=== PATIENT | female | born 1935 | race Caucasian/White ===

== ENCOUNTER 2019-05-11 06:10 | Day surgery (SDC) | payer MEDICARE ==
[~2019-05-11 06:10] MED LIST: Acetaminophen TAB* 325 MG ONE; Acetaminophen TAB* 325 MG PO ONE; Buffered Lidocaine 1% SYRIN* 1 ML/SYRINGE INTRADERM ONE; Lactated Ringers 1000 ML Bag* 1,000 ML IV SCH; ceFAZolin 2 GM in NS PREMIX(*) 2 GM/100 ML BAG IVPB ONE
[2019-05-11] MEDS ORDERED: Lidocaine 1% INJ* 10 MG/ML 30 ML SDV ONE (07:43)
[2019-05-11] MEDS ORDERED: Ondansetron INJ* 2 MG/ML VIAL ONE (07:58)
[2019-05-11] MEDS ORDERED: fentaNYL* 50 MCG/ML 2 ML VIAL (100 MCG VIAL) ONE ×2 (07:58→09:41)
[2019-05-11] MEDS ORDERED: Midazolam* 1 MG/ML 2 ML VIAL (2 MG) ONE (07:58)
[2019-05-11] MEDS ORDERED: Dexamethasone IV* 4 MG/ML 1 ML (4 MG) ONE (07:58)
[2019-05-11] MEDS ORDERED: Lidocaine 2% PF * 5 ML VIAL ONE (07:58)
[2019-05-11] MEDS ORDERED: Propofol* 10 MG/ML 20 ML BTL ONE (07:58)
[2019-05-11] MEDS ORDERED: Famotidine IV* 10 MG/ML 2 ML (20 mg) ONE (08:01)
[2019-05-11] MEDS ORDERED: Bupivacaine 0.25% SDV* 30 ML ONE (08:15)
[2019-05-11] MEDS ORDERED: Ondansetron INJ* 2 MG/ML VIAL IV PRN (08:27)
[2019-05-11] MEDS ORDERED: HYDROcodone/ACETAMIN 5-325 MG* 1 TAB PO PRN (08:27)
[2019-05-11] MEDS ORDERED: Naloxone* 0.4 MG/ML 1 ML VIAL IV PRN (08:27)
[2019-05-11] MEDS ORDERED: DiMENhydriNATE IV* 50 MG/ML VIAL IV PUSH PRN (08:27)
[2019-05-11] MEDS ORDERED: Labetalol IV* 5 MG/ML 20 ML VIAL ONE (08:41)
[2019-05-11] MEDS: fentaNYL* 50 MCG/ML 2 ML VIAL (100 MCG VIAL) IV PRN ×3 (09:42→10:01)
[2019-05-11] MEDS ORDERED: traMADol TAB* 50 MG PO ONE (10:16)
[2019-05-11] MEDS ORDERED: traMADol TAB* 50 MG ONE (10:18)
[2019-05-11 11:24] VITALS: BP 144/68
--- NOTE | 2019-05-11 22:44 | OP ---
DATE OF OPERATION: 05/11/19 - [facility] DATE OF : 31 SURGEON: Reji Cabrera MD DIRECTOR HEALTH: JN Kwon. An assistant offset press operator was needed for the procedure to aid in positioning of the arm and retraction. ANESTHESIOLOGIST: Dr. Stephenson. ANESTHESIA: General PRE-OP DIAGNOSES: 1. Left middle, ring, and small trigger fingers. 2. Left ring finger Dupuytren's contracture. 3. Bilateral thumb carpometacarpal joint end-stage arthritis. POST-OP DIAGNOSES: 1. Left middle, ring, and small trigger fingers. 2. Left ring finger Dupuytren's contracture. 3. Bilateral thumb carpometacarpal joint end-stage arthritis. OPERATIVE PROCEDURE: 1. Left hand and ring finger Dupuytren's excision. 2. Left middle trigger finger release. 3. Left ring trigger finger release. 4. Left small trigger finger release. 5. Right thumb carpometacarpal steroid injection. 6. Left thumb carpometacarpal joint steroid injection. ESTIMATED BLOOD LOSS: 2 mL. COMPLICATIONS: None. FINDINGS: See above and below. DESCRIPTION OF PROCEDURE: Ms. Cooper was seen in the preoperative holding area. The correct site, side, and procedures were identified. We came back to the operating room, the arm was prepped and draped in the usual fashion, and a time-out was performed. I first placed the lead hand. I then made a Thalia incision over the left ring finger. Full-thickness flaps were raised off of the Dupuytren's cord. Care was taken to preserve the digital neurovascular bundles. I released the cord proximally and then followed it out distally releasing the vertical septi all the way on to over the area of the proximal phalanx where the cord was released and fully excised. Again great care was taken to preserve the digital neurovascular bundles. The cord was handed off as a specimen. I then released the A1 prabhjot of the left ring finger. There was some tenosynovitis that was excised. That completed a trigger finger release there. I then made 1 cm longitudinal incisions over the A1 pulleys of the middle finger and small fingers. I first began on the middle finger, I bluntly raised full- thickness flaps off the A1 prabhjot. The Ragnell retractors were placed. The A1 prabhjot was incised longitudinally with a 15-blade. The release was completed distally and proximally with the tenotomy scissors. In the like manner, I placed the retractors on the small finger, I then incised the A1 prabhjot longitudinally and completed the release distally and proximally with the tenotomy scissors. At this point, everything was looking good. The wounds were irrigated out. All the wounds were closed with 4-0 nylon suture. 0.25% Marcaine was infiltrated all about the operative areas. Please note that prior to even prepping and draping, we had cleansed the skin over first the right thumb CMC joint with alcohol, a 25-gauge needle used to inject 1 mL of 1% lidocaine and 6 mg of betamethasone into the right thumb carpo -metacarpal joint. Band-Aid was applied there. After injecting the right side , I went over to the left side and I cleansed the skin with alcohol. A 25- gauge needle was used to inject 1 mL of 1% lidocaine and 6 mg of betamethasone into the left thumb carpometacarpal joint. After all the procedures were performed, the wounds were dressed in a splint holding the middle, ring, and small fingers and gentle extension was applied. Tourniquet was deflated. She was taken to the Recovery room in stable condition. [id number]/[facility] #: [id number] AMARJIT
== END 2019-05-11 11:59 | disposition home or self-care (01) ==
LOC: OR 06:10
PROVIDERS: ATTEND Orthopaedic Surgery Hand Surgery
DX: M72.0 Palmar fascial fibromatosis [Dupuytren] (principal); M65.332 Trigger finger, left middle finger; M65.342 Trigger finger, left ring finger; M65.352 Trigger finger, left little finger; G47.33 Obstructive sleep apnea (adult) (pediatric); E11.9 Type 2 diabetes mellitus without complications; Z79.84 Long term (current) use of oral hypoglycemic drugs; M19.90 Unspecified osteoarthritis, unspecified site
CPT/HCPCS: 88304; A9270-GY; J0690; J1100; J2250; J2405; J2704; J3010; J3490